=== PATIENT | female | born 1995 | race Caucasian/White ===

== ENCOUNTER 2018-10-04 12:47 | Emergency (ER) | payer MEDICAID ==
[~2018-10-04] VITALS: Ht 160 cm; Wt 61.2 kg
[~2018-10-04 12:47] MED LIST: CIPR-172 PO
[2018-10-04 13:01] VITALS: BP_SYST 124
[2018-10-04] MEDS ORDERED: KETOROLAC TROMETHAMINE 15 MG VIAL IVP ONE (13:45)
[2018-10-04] MEDS ORDERED: NACL 0.9% 1,000 ML IV ONE (13:45)
[2018-10-04 13:49] LABS: BASOPHILS # (AUTO) 0.1 K/uL (0.0-0.2); BASOPHILS % (AUTO) 0.9 % (0.0-2.0); EOSINOPHILS # (AUTO) 0.2 K/uL (0.0-0.4); EOSINOPHILS % (AUTO) 2.2 % (0.0-4.0); HEMATOCRIT 36.6 % (36-48); HEMOGLOBIN 12.2 g/dL (12.0-16.0); LYMPHOCYTES # (AUTO) 1.7 K/uL (1.0-5.5); LYMPHOCYTES % (AUTO) 23.6 % (20.5-51.5); MEAN CORPUSCULAR HEMOGLOBIN 29 pg (27-31); MEAN CORPUSCULAR HGB CONC 33 % (32-36); MEAN CORPUSCULAR VOLUME 88 fL (79.0-98.0); MONOCYTES # (AUTO) 0.5 K/uL (0.0-1.0); MONOCYTES % (AUTO) 7.5 % (1.7-9.3); NEUTROPHILS # (AUTO) 4.8 K/uL (1.8-7.7); NEUTROPHILS % (AUTO) 65.8 % (40.0-70.0); PLATELET COUNT (AUTO) 364 K/uL (130-430); RED BLOOD CELL COUNT(AUTO) 4.18 MIL/uL (4.2-6.2); RED CELL DISTRIBUTION WIDTH 13.3 % (9.0-15.0); WHITE BLOOD COUNT (AUTO) 7.3 K/uL (4.8-10.8)
[2018-10-04 13:56] LABS: CALCIUM 9.7 mg/dL (8.4-11.0); CREATININE 0.56 mg/dL (0.55-1.30); POTASSIUM 4.1 mmol/L (3.5-5.1)
[2018-10-04 14:25] VITALS: BP_SYST 124
== END 2018-10-04 14:25 | disposition home or self-care (01) ==
LOC: SED 12:47
DX: H81.10 Benign paroxysmal vertigo, unspecified ear (principal); R03.0 Elevated blood-pressure reading, without diagnosis of hypertension
CPT/HCPCS: 36415; 80048; 81002; 81025; 85025; 93005; 99284; J1885; J7030

== ENCOUNTER 2019-03-15 16:39 | Emergency (ER) | payer MEDICAID ==
--- NOTE | 2019-03-15 17:39 | NUR ---
Per registration pt LWBS at [id number]
== END 2019-03-15 17:39 | disposition left against medical advice (07) ==
LOC: SED 16:39
DX: M54.2 Cervicalgia (principal); M54.9 Dorsalgia, unspecified; Z53.21 Procedure and treatment not carried out due to patient leaving prior to being seen by health care provider

== ENCOUNTER 2019-05-09 12:46 | Emergency (ER) | payer MEDICAID ==
[~2019-05-09] VITALS: Ht 160 cm; Wt 59.0 kg
[2019-05-09 13:30] VITALS: BP_SYST 113
--- NOTE | 2019-05-09 13:56 | NUR ---
Patient triaged and placed in waiting room. VSS and patient appears in no acute distress at this time. Accompanied by self, awaiting available bed, and MD notified of need for MSE.
--- NOTE | 2019-05-09 15:45 | NUR ---
Patient to ER hallway 2 to [facility] for evaluation. Side rails up.
--- NOTE | 2019-05-09 15:46 | NUR ---
Patient is awake, alert, and oriented x4. Patient is complaining of sinus headache. No other complaints at this time.
--- NOTE | 2019-05-09 15:47 | NUR ---
GISELA Melendez at bedside examining patient.
--- NOTE | 2019-05-09 15:59 | NUR ---
Patient given written and verbal discharge instructions and verbalizes understanding. ER MD discussed with patient the results and treatment provided. Patient in stable condition. ID arm band removed. Rx of zosophie escobarrosyn given. Patient educated on pain management and to follow up with PMD. Pain Scale 0/10. Opportunity for questions provided and answered. Medication side effect fact sheet provided.
[2019-05-09 16:00] VITALS: BP_SYST 113
[2019-05-09 16:13] LABS: BARBITURATE, URINE NEGATIVE (NEG <=200); BENZODIAZEPINE, URINE NEGATIVE (NEG <=150); CANNABINOID, URINE NEGATIVE (NEG <=50); COCAINE, URINE NEGATIVE (NEG <=150); METHAMPHETAMINES SCREEN,URINE NEGATIVE (NEG <=500); OPIATE, URINE NEGATIVE (NEG <=100); PHENCYCLIDINE SCREEN,URINE NEGATIVE (NEG <=25); UR TRICYCLIC ANTIDEPRESSANTS NEGATIVE (NEG <=300); URINE AMPHETAMINE NEGATIVE (NEG <=500); URINE METHADONE NEGATIVE (NEG <=200); URINE OXYCODONE SCREEN NEGATIVE (NEG <=100); URINE PROPOXYPHENE SCREEN NEGATIVE (NEG <=300)
== END 2019-05-09 16:00 | disposition home or self-care (01) ==
LOC: SED 12:46
DX: G43.909 Migraine, unspecified, not intractable, without status migrainosus (principal)
CPT/HCPCS: 70450-TC; 80307; 81025; 99284

== ENCOUNTER 2021-07-12 15:24 | Emergency (ER) | payer MEDICAID ==
[~2021-07-12] VITALS: Ht 160 cm; Wt 54.4 kg
[~2021-07-12 15:24] MED LIST changes: -CIPR-172 PO; +CIPR250T4 PO
[2021-07-12 15:37] VITALS: BP_SYST 121
--- NOTE | 2021-07-12 16:08 | NUR ---
pt presented to the er with epigatric pain 08/30 for the past four days, it is worse in the morning when she wakes up. pt drove herself to er. pt has been fasting for relegious purposes for the past 21 days, pt vs are within normal limits. pt denies any breathing, vision, hearing issues. Addendum: 07/12/21 at 1618 by RYLAN patient in bed resting comfortably with bed lowered and locked, rails up.
--- NOTE | 2021-07-12 16:08 | NUR ---
Dr Ibarra assessed pt at bed side
--- NOTE | 2021-07-12 16:08 | NUR ---
Patient to ER bed 05 to gown for evaluation. Side rails up.
[2021-07-12 16:59] LABS: BILIRUBIN,URINE NEGATIVE (NEGATIVE); BLOOD, URINE NEGATIVE (NEGATIVE); CLARITY/URINE CLEAR (CLEAR); COLOR,URINE YELLOW (YELLOW); GLUCOSE,URINE NEGATIVE (NEGATIVE); KETONES,URINE NEGATIVE (NEGATIVE); LEUKOCYTE ESTERASE ,URINE NEGATIVE (NEGATIVE); NITRITE, URINE NEGATIVE (NEGATIVE); PROTEIN URINE NEGATIVE (NEGATIVE); UROBILINOGEN,URINE 0.2 (0.2-1.0)
--- NOTE | 2021-07-12 16:59 | NUR ---
ultra sound completed at pt bedside
[2021-07-12 17:22] LABS: BASOPHILS % (AUTO) 0.6 % (0.0-2.0); EOSINOPHILS # (AUTO) 0.2 K/uL (0.0-0.4); HEMATOCRIT 36.8 % (36-48); HEMOGLOBIN 12.4 g/dL (12.0-16.0); LYMPHOCYTES # (AUTO) 1.5 K/uL (1.0-5.5); LYMPHOCYTES % (AUTO) 22.4 % (20.5-51.5); MEAN CORPUSCULAR HEMOGLOBIN 29 pg (27-31); MEAN CORPUSCULAR HGB CONC 34 % (32-36); MEAN CORPUSCULAR VOLUME 86 fL (79.0-98.0); MONOCYTES # (AUTO) 0.4 K/uL (0.0-1.0); MONOCYTES % (AUTO) 6.5 % (1.7-9.3); NEUTROPHILS # (AUTO) 4.5 K/uL (1.8-7.7); NEUTROPHILS % (AUTO) 67.5 % (40.0-70.0); PLATELET COUNT (AUTO) 297 K/uL (130-430); RED BLOOD CELL COUNT(AUTO) 4.26 MIL/uL (4.2-6.2); RED CELL DISTRIBUTION WIDTH 13.1 % (9.0-15.0); WHITE BLOOD COUNT (AUTO) 6.6 K/uL (4.8-10.8)
[2021-07-12 17:29] LABS: CALCIUM 9.2 mg/dL (8.4-11.0); CREATININE 0.53 mg/dL (0.55-1.30); POTASSIUM 4.2 mmol/L (3.5-5.1)
[2021-07-12 17:35] LABS: ALBUMIN 4.1 g/dL (3.4-4.8); TOTAL BILIRUBIN 0.4 mg/dL (0.0-1.0)
[2021-07-12] MEDS ORDERED: OMEP20CA15 PO (17:41)
[2021-07-12] MEDS ORDERED: MAG HYDROX/AL HYDROX/SIMETH 30 ML, DICYCLOMINE HCL 20 MG, LIDOCAINE VISCOUS 2% 15ML (PO... PO ONE ×3 (17:45)
--- NOTE | 2021-07-12 17:55 | NUR ---
Patient given written and verbal discharge instructions and verbalizes understanding. ER MD discussed with patient the results and treatment provided. Patient in stable condition. ID arm band removed. IV catheter removed intact and dressing applied, no active bleeding. Rx of omeprazole given. Patient educated on pain management and to follow up with PMD. Pain Scale 2 of 10. Opportunity for questions provided and answered. Medication side effect fact sheet provided.
--- NOTE | 2021-07-12 17:55 | NUR ---
patient declined GI coctail
[2021-07-12 18:05] VITALS: BP_SYST 142
== END 2021-07-12 17:55 | disposition home or self-care (01) ==
LOC: SED 15:24
DX: K29.70 Gastritis, unspecified, without bleeding (principal); Z79.899 Other long term (current) drug therapy
CPT/HCPCS: 36415; 76700-TC; 80053; 81003; 81025; 82150; 83690; 84703; 85025; 99284

== ENCOUNTER 2021-08-24 13:20 | Emergency (ER) | payer MEDICAID ==
[~2021-08-24] VITALS: Ht 160 cm; Wt 56.7 kg
[2021-08-24 13:20] VITALS: BP_SYST 100
[~2021-08-24 13:20] MED LIST changes: +OMEP20CA15 PO
--- NOTE | 2021-08-24 13:20 | NUR ---
BROUGHT TO AMBULANCE RAMP AND TRIAGED. WILL ASSUME CARE.
--- NOTE | 2021-08-24 13:40 | NUR ---
PT STATES COUGH WITH SLIGHT CONGESTION. PT STATES SHE HAS BEEN VACCINATED FOR COVID. PT STATES SHE THINKS SHE MIGHT HAVE BRONCHITIS
--- NOTE | 2021-08-24 14:05 | NUR ---
covid 19 swab performed outside in ambulance bay and sent to lab
--- NOTE | 2021-08-24 14:08 | NUR ---
DR ACOSTA OUT TO AMBULANCE RAMP FOR EVALUATION
[2021-08-24] MEDS ORDERED: PHEDM120 PO (15:24)
[2021-08-24] MEDS ORDERED: PRED20TA PO (15:24)
--- NOTE | 2021-08-24 15:37 | NUR ---
Patient given written and verbal discharge instructions and verbalizes understanding. ER MD discussed with patient the results and treatment provided. Patient in stable condition. ID arm band removed. Rx of PREDNISONE, PROMETHAZINE DM given. Patient educated on pain management and to follow up with PMD. Pain Scale 0/10. Opportunity for questions provided and answered. Medication side effect fact sheet provided.
== END 2021-08-24 15:37 | disposition home or self-care (01) ==
LOC: SED 13:20
DX: J40 Bronchitis, not specified as acute or chronic (principal); R05.9 Cough, unspecified; Z20.822 Contact with and (suspected) exposure to COVID-19
CPT/HCPCS: 36415; 71045; 99284

== ENCOUNTER 2021-11-09 11:56 | Emergency (ER) | payer MEDICAID ==
[~2021-11-09] VITALS: Ht 160 cm; Wt 54.4 kg
[~2021-11-09 11:56] MED LIST changes: +PHEDM120 PO; +PRED20TA PO
[2021-11-09 12:00] VITALS: BP_SYST 107
--- NOTE | 2021-11-09 12:00 | NUR ---
Placed in room 2 . Placed on cafeteria monitor, blood pressure machine and pulse oximeter. To gown for exam. Side rails up. Report given to SAMY MAURO.
--- NOTE | 2021-11-09 12:25 | NUR ---
MD CARRIZALES AT BEDSIDE FOR ASSESS. PT VSS. NAD NOTED. WILL CONT TO MONITOR PT.
[2021-11-09 12:48] LABS: BILIRUBIN,URINE NEGATIVE (NEGATIVE); BLOOD, URINE 3+ (NEGATIVE); COLOR,URINE YELLOW (YELLOW); GLUCOSE,URINE NEGATIVE (NEGATIVE); KETONES,URINE NEGATIVE (NEGATIVE); LEUKOCYTE ESTERASE ,URINE 1+ (NEGATIVE); NITRITE, URINE NEGATIVE (NEGATIVE); PROTEIN URINE NEGATIVE (NEGATIVE); UROBILINOGEN,URINE 0.2 (0.2-1.0)
[2021-11-09 12:59] LABS: CLARITY/URINE CLOUDY (CLEAR)
[2021-11-09 13:03] LABS: BASOPHILS % (AUTO) 0.5 % (0.0-2.0); EOSINOPHILS # (AUTO) 0.2 K/uL (0.0-0.4); EOSINOPHILS % (AUTO) 3.4 % (0.0-4.0); HEMATOCRIT 33.2 % (36-48); HEMOGLOBIN 11.4 g/dL (12.0-16.0); LYMPHOCYTES # (AUTO) 1.3 K/uL (1.0-5.5); LYMPHOCYTES % (AUTO) 20.3 % (20.5-51.5); MEAN CORPUSCULAR HEMOGLOBIN 29 pg (27-31); MEAN CORPUSCULAR HGB CONC 34 % (32-36); MEAN CORPUSCULAR VOLUME 85 fL (79.0-98.0); MONOCYTES # (AUTO) 0.7 K/uL (0.0-1.0); MONOCYTES % (AUTO) 10.9 % (1.7-9.3); NEUTROPHILS # (AUTO) 4.2 K/uL (1.8-7.7); NEUTROPHILS % (AUTO) 64.9 % (40.0-70.0); PLATELET COUNT (AUTO) 298 K/uL (130-430); RED CELL DISTRIBUTION WIDTH 12.6 % (9.0-15.0); WHITE BLOOD COUNT (AUTO) 6.4 K/uL (4.8-10.8)
[2021-11-09 13:08] LABS: CALCIUM 8.7 mg/dL (8.4-11.0); CREATININE 0.63 mg/dL (0.55-1.30); POTASSIUM 3.7 mmol/L (3.5-5.1)
[2021-11-09] MEDS: ONDANSETRON HCL 4 MG/2 ML VIAL IVP ONE ×2 (13:08→13:17)
[2021-11-09] MEDS: NACL 0.9% 1,000 ML IV ONE ×2 (13:08→13:16)
[2021-11-09] MEDS: KETOROLAC TROMETHAMINE 15 MG VIAL IVP ONE ×2 (13:08→13:16)
[2021-11-09 13:13] LABS: BACTERIA,URINE FEW /HPF (None Seen)
[2021-11-09 13:14] LABS: ALBUMIN 3.3 g/dL (3.4-4.8); TOTAL BILIRUBIN 0.4 mg/dL (0.0-1.0)
[2021-11-09] MEDS ORDERED: cefTRIAXone 1 GM VIAL IM ONE (14:15)
[2021-11-09] MEDS ORDERED: CEPH-548 PO (14:20)
[2021-11-09 14:22] VITALS: BP_SYST 118
--- NOTE | 2021-11-09 14:23 | NUR ---
Patient given written and verbal discharge instructions and verbalizes understanding. ER MD discussed with patient the results and treatment provided. Patient in stable condition. ID arm band removed. IV catheter removed intact and dressing applied, no active bleeding. Rx of KEFLEX given. Patient educated on pain management and to follow up with PMD. Pain Scale . Opportunity for questions provided and answered. Medication side effect fact sheet provided.
== END 2021-11-09 14:22 | disposition home or self-care (01) ==
LOC: SED 11:56
DX: N12 Tubulo-interstitial nephritis, not specified as acute or chronic (principal); N83.291 Other ovarian cyst, right side; M54.50 Low back pain, unspecified; R10.9 Unspecified abdominal pain; R11.0 Nausea; Z79.899 Other long term (current) drug therapy
CPT/HCPCS: 99285; 74176; 71045; 80053; 81000; 83690; 85025; 87040; 87086; 36415; 76376; 81025; 96372; 83605; J0696; J1885; J2405

== ENCOUNTER 2023-11-11 14:51 | Emergency (ER) | payer MEDICAID ==
[~2023-11-11] VITALS: Ht 160 cm; Wt 63.5 kg
[~2023-11-11 14:51] MED LIST changes: +CEPH-548 PO
[2023-11-11 15:13] VITALS: BP_SYST 107; PULSE 65; RESP 18; TEMP 98.3; O2SAT 98
[2023-11-11] MEDS ORDERED: LIDOCAINE JELLY 5 ML TUBE MM ONE (15:45)
[2023-11-11] MEDS: MAG-AL HYDROX/SIMETH 30 ML UDC PO ONE (16:34)
[2023-11-11] MEDS: DICYCLOMINE HCL 10 MG CAPSULE PO ONE (16:34)
[2023-11-11] MEDS: LIDOCAINE VISCOUS 2%, 15 ML UDC MM ONE (16:34)
[2023-11-11 16:45] LABS: BASOPHILS # (AUTO) 0.1 K/uL (0.0-0.2); EOSINOPHILS # (AUTO) 0.8 K/uL (0.0-0.4); EOSINOPHILS % (AUTO) 8.7 % (0.0-4.0); HEMOGLOBIN 11.5 g/dL (12.0-16.0); LYMPHOCYTES # (AUTO) 1.6 K/uL (1.0-5.5); LYMPHOCYTES % (AUTO) 15.9 % (20.5-51.5); MEAN CORPUSCULAR HEMOGLOBIN 29 pg (27-31); MEAN CORPUSCULAR HGB CONC 34 % (32-36); MEAN CORPUSCULAR VOLUME 85 fL (79.0-98.0); MONOCYTES # (AUTO) 0.6 K/uL (0.0-1.0); MONOCYTES % (AUTO) 6.1 % (1.7-9.3); NEUTROPHILS # (AUTO) 6.7 K/uL (1.8-7.7); NEUTROPHILS % (AUTO) 68.3 % (40.0-70.0); PLATELET COUNT (AUTO) 331 K/uL (130-430); RED BLOOD CELL COUNT(AUTO) 4.01 MIL/uL (4.2-6.2); RED CELL DISTRIBUTION WIDTH 13.2 % (9.0-15.0); WHITE BLOOD COUNT (AUTO) 9.8 K/uL (4.8-10.8)
[2023-11-11 16:47] LABS: ALANINE AMINOTRANSFERASE 13 U/L (12-78); ALBUMIN 3.5 g/dL (3.4-4.8); ANION GAP 8 (5-15); ASPARTATE AMINOTRANSFERASE 16 U/L (10-37); BILIRUBIN,DIRECT 0.1 mg/dL (0.0-0.3); CALCIUM 8.9 mg/dL (8.4-11.0); CARBON DIOXIDE 27 mmol/L (23-29); CHLORIDE 104 mmol/L (98-107); CREATININE 0.52 mg/dL (0.55-1.30); GFR AFRICAN AMERICAN 183 mL/min (>90); GLUCOSE 88 mg/dL (74-106); LIPASE 59 U/L (16-77); POTASSIUM 3.8 mmol/L (3.5-5.1); SODIUM SERUM 139 mmol/L (136-145); TOTAL BILIRUBIN 0.2 mg/dL (0.0-1.0); TOTAL PROTEIN, SERUM 6.5 g/dL (6.4-8.3); UREA NITROGEN, BLOOD 12 mg/dL (8-21)
[2023-11-11 17:13] LABS: GFR NON AFRICAN-AMERICAN 151 mL/min (>90)
[2023-11-11] MEDS ORDERED: PRO40 PO (18:49)
[2023-11-11] MEDS ORDERED: ANT30 PO (18:50)
[2023-11-11 19:00] VITALS: BP_SYST 107; PULSE 65; RESP 18; TEMP 98.3; O2SAT 98
== END 2023-11-11 19:00 | disposition home or self-care (01) ==
LOC: SED 14:51
DX: K29.60 Other gastritis without bleeding (principal); R10.11 Right upper quadrant pain; G43.909 Migraine, unspecified, not intractable, without status migrainosus; Z90.49 Acquired absence of other specified parts of digestive tract; Z79.899 Other long term (current) drug therapy; Z79.2 Long term (current) use of antibiotics
CPT/HCPCS: 36415; 71045; 76700; 80053; 80076; 81025; 83690; 84484; 85025; 93005; 99285; J2001